=== PATIENT | female | born 1965 | race Caucasian/White ===

== ENCOUNTER 2018-10-05 22:21 | Emergency (ER) | payer OTHER ==
[~2018-10-05] VITALS: Ht 162.6 cm; Wt 70.3 kg
[2018-10-05 22:23] VITALS: BP 127/93
--- NOTE | 2018-10-05 22:27 | NUR ---
PT AMBULATORY TO ER LOBBY W/ STEADY GAIT IN STABLE CONDITION.
--- NOTE | 2018-10-05 22:51 | NUR ---
PT AMBULATED TO ER BED 10
--- NOTE | 2018-10-05 23:04 | NUR ---
PT BIB C/O RIGHT EYE PAIN. PT STATES THE PAIN STARTED LAST NIGHT, STATES THAT WHEN IT GETS COLD AND WHEN SHE EATS ALOT OF MEAT SAME SYMPTOMS WILL PRESENT. REDNESS TO INNER CORNEA, NO DISCHARGE OR SWELLING AT THIS TIME, DENIES TRAUMA OR FOREIGN BODY, 10/10 SHARP PAIN, RADIATES TO RIGHT SIDE OF HEAD. PT IN BED, BED IN LOWER LOCKED POSITION. ER MD MADE AWARE OF PT STATUS. PMH: DENIES
--- NOTE | 2018-10-06 00:11 | NUR ---
Dr. Downs evaluating patient at bedside.
[2018-10-06] MEDS ORDERED: KETOROLAC 30 MG/ML VIAL IVP ONE (00:20)
[2018-10-06] MEDS ORDERED: NACL 0.9% 1,000 ML IV ONE (00:20)
[2018-10-06 00:47] LABS: BASOPHILS # (AUTO) 0.1 K/uL (0.00-0.22); BASOPHILS % (AUTO) 0.7 % (0.0-2.0); EOSINOPHILS # (AUTO) 0.5 K/uL (0-0.4); EOSINOPHILS % (AUTO) 3.9 % (0.0-4.0); HEMATOCRIT 42.3 % (36-48); HEMOGLOBIN 13.9 g/dL (12.0-16.0); LYMPHOCYTES # (AUTO) 4.2 K/uL (2.5-16.5); LYMPHOCYTES % (AUTO) 36.4 % (20.5-51.1); MEAN CORPUSCULAR HEMOGLOBIN 30 pg (27-31); MEAN CORPUSCULAR HGB CONC 33 g/dL (33-37); MEAN CORPUSCULAR VOLUME 89.6 fL (80-94); MONOCYTES # (AUTO) 0.7 K/uL (0.8-1.0); MONOCYTES % (AUTO) 6.2 % (1.7-9.3); NEUTROPHILS # (AUTO) 6.1 K/uL (1.8-7.7); NEUTROPHILS % (AUTO) 52.8 % (42.2-75.2); PLATELET COUNT (AUTO) 296 K/uL (140-450); RED BLOOD CELL COUNT(AUTO) 4.72 MIL/uL (4.20-5.40); RED CELL DISTRIBUTION WIDTH 13.8 % (11.6-13.7); WHITE BLOOD COUNT (AUTO) 11.6 K/uL (4.8-10.8)
[2018-10-06 00:54] LABS: CARBON DIOXIDE 30.3 mmol/L (21-32); CREATININE 0.7 mg/dL (0.6-1.3)
[2018-10-06 00:57] LABS: ANION GAP 5.9 (8-16); POTASSIUM 4.2 mmol/L (3.5-5.1)
--- NOTE | 2018-10-06 01:24 | NUR ---
PT TAKEN TO CT
--- NOTE | 2018-10-06 01:44 | NUR ---
PT BACK IN BED FROM CT.
[2018-10-06 03:35] VITALS: BP 134/82
== END 2018-10-06 03:24 | disposition home or self-care (01) ==
LOC: MED 22:21
DX: H57.11 Ocular pain, right eye (principal)
CPT/HCPCS: 36415; 70481; 80048; 85025; 87040; 96374; 99284; J1885; J7030; Q9967